=== PATIENT | female | born 1950 | race Caucasian/White ===

== ENCOUNTER 2023-08-17 12:13 | Emergency (ER) | payer OTHER ==
[~2023-08-17] VITALS: Ht 160 cm; Wt 63.0 kg
[2023-08-17] MEDS ORDERED: HYDROmorphone HCl/Pf 1MG SYR IM ONE (13:50)
[2023-08-17] MEDS ORDERED: propofoL 100 ML IV SCH ×2 (14:55→15:40)
[2023-08-17] MEDS ORDERED: propofoL 20 ML IV ONE (15:41)
[2023-08-17] MEDS ORDERED: TRAZ50 PO (16:22)
[2023-08-17] MEDS ORDERED: ESCI20 PO (16:22)
[2023-08-17] MEDS ORDERED: ATOR10 PO (16:22)
[2023-08-17] MEDS ORDERED: EUTHYROX150 MC1 PO (16:22)
[2023-08-17] MEDS ORDERED: BUPROPION XL150 M1 PO (16:22)
[2023-08-17] MEDS ORDERED: OMEP20ER PO (16:22)
[2023-08-17] MEDS ORDERED: METOPROLOL TART25 MG PO (16:23)
[2023-08-17] MEDS ORDERED: Ativan1 MG PO (16:23)
[2023-08-17] MEDS ORDERED: GABAPENTIN600 MG PO (16:23)
[2023-08-17] MEDS ORDERED: Propofol 10mg/ml 20 ml Vial (Procedural) IV SCH (16:35)
[2023-08-17] MEDS ORDERED: Percocet 5-3251 EACH PO ×3 (17:40→17:52)
[2023-08-17] MEDS ORDERED: Albuterol 2.5 MG/3 ML VIAL INH PRN (17:45)
[2023-08-17 17:55] LABS: BASOPHILS ABSOLUTE AUTO 0.07 K/mm3 (0.00-0.23); BASOPHILS PERCENT AUTO 1 % (0-2); EOSINOPHILS PERCENT AUTO 4 % (0-6); Hematocrit 34.3 % (33.0-51.0); Hemoglobin 11.7 g/dL (11.5-16.0); IMMATURE GRAN ABSOLUTE AUTO 0.05 K/mm3 (0.00-0.10); IMMATURE GRAN PERCENT AUTO 1 % (0-1); LYMPHOCYTES ABSOLUTE AUTO 0.58 K/mm3 (0.84-5.20); LYMPHOCYTES PERCENT AUTO 6 % (21-46); MONOCYTES ABSOLUTE AUTO 0.76 K/mm3 (0.16-1.47); MONOCYTES PERCENT AUTO 8 % (4-13); Mean Corpuscular HGB 33.6 pg (26.0-34.0); Mean Corpuscular HGB Conc 34.1 g/dL (31.5-36.5); Mean Corpuscular Volume 99 fL (80-100); Mean Platelet Volume 9.1 fL (9.1-12.4); NEUTROPHILS ABSOLUTE AUTO 7.37 K/mm3 (1.96-9.15); NEUTROPHILS PERCENT AUTO 80 % (41-73); Platelet Count 342 K/mm3 (150-400); RDW Coefficient Variation 15.8 % (11.7-14.2); RDW Standard Deviation 56.8 fL (35.1-46.3); Red Blood Cell Count 3.48 M/mm3 (3.80-5.20); White Blood Cell Count 9.23 K/mm3 (4.00-11.30)
[2023-08-17] MEDS ORDERED: Albuterol 2.5 MG/3 ML VIAL INH ONE (18:00)
[2023-08-17 18:19] LABS: Albumin, Blood 2.8 g/dL (3.4-5.0); Albumin/Globulin Ratio 0.8 (0.8-1.8); Bilirubin, Total 0.3 mg/dL (0.1-1.0); Bun/Creatinine Ratio 12.5 (12.0-20.0); Calcium, Blood 8.4 mg/dL (8.5-10.1); Creatinine, Blood 0.4 mg/dL (0.40-1.00); Globulin, Blood 3.6 g/dL (2.2-4.0); Potassium, Blood 3.8 mmol/L (3.5-5.5); Total Protein, Blood 6.4 g/dL (6.4-8.2)
[2023-08-18] MEDS ORDERED: Enoxaparin 40 MG/0.4 ML SYR SC SCH (09:00)
== END 2023-08-17 18:41 | disposition home or self-care (01) ==
LOC: ER 12:13
PROVIDERS: Physician Assistant
DX: T84.028A Dislocation of other internal joint prosthesis, initial encounter (principal); X58.XXXA Exposure to other specified factors, initial encounter; I10 Essential (primary) hypertension; E03.9 Hypothyroidism, unspecified; Z85.3 Personal history of malignant neoplasm of breast; E78.5 Hyperlipidemia, unspecified
CPT/HCPCS: 23650; 73020; 73030; 80053; 85025; 96372-59; 99152; 99153; 99284-25; J1170; J2704

== ENCOUNTER 2023-10-03 12:42 | Day surgery (SDC) | payer OTHER ==
[~2023-10-03] VITALS: Ht 149.9 cm; Wt 57.2 kg
[2023-10-03] VITALS (8 sets, daily range): BP systolic 103–115; BP diastolic 68–78
[~2023-10-03 12:42] MED LIST: ATOR10 PO; Ativan1 MG PO; BUPROPION XL150 M1 PO; CeFAZolin Sodium 2,000 MG in NS 100 ML IV SCH; ESCI20 PO; EUTHYROX150 MC1 PO; GABAPENTIN600 MG PO; Lactated Ringer's 1,000 ML IV SCH; METOPROLOL TART25 MG PO; OMEP20ER PO; Percocet 5-3251 EACH PO; TRAZ50 PO
[2023-10-03] MEDS ORDERED: FentaNYL Citrate 50 MCG/ML 2 ML Injection ONE (14:07)
--- NOTE | 2023-10-03 14:13 | NUR ---
TIME OUT FOR DR GOLDSMITH TO PLACE RIGHT SIDE SUPRACLAVICULAR SINGLE SHOT BLOCK.
[2023-10-03] MEDS ORDERED: Ropivacaine 0.2% HCl/Pf 2 MG/ML 20ML Vial ONE (14:14)
[2023-10-03] MEDS ORDERED: Dexamethasone Sod Phos 10 MG/ML 1ML VIAL ONE (14:15)
[2023-10-03] MEDS ORDERED: propofoL 20 ML IV ONE (14:53)
[2023-10-03] MEDS ORDERED: Bupivacaine 0.5% HCl 5 MG/ML 30MLVIAL ONE (15:21)
[2023-10-03] MEDS ORDERED: ePHEDrine Sulfate 50 MG/ML 1ML Injection ONE (15:26)
[2023-10-03] MEDS ORDERED: Phenylephrine HCl 100 MCG/ML-NS 10MLSYR (1MG/10ML) ONE (15:44)
[2023-10-03] MEDS ORDERED: Ondansetron HCl 2 MG / ML 2ML Vial ONE (15:44)
--- NOTE | 2023-10-03 16:15 | NUR ---
PT AWAKE WHEN ARRIVE TO PACU, DENIES PAIN. SPLINT TO R ARM WITH FUAD WRAP, CAP REFILL WNL. PT ABD TO DEEP BREATH AND COUGH.
--- NOTE | 2023-10-03 17:15 | NUR ---
REVIEWED DISCHARGE INSTRUCTIONS. PT ASSISTED TO DRESS, SLING PROVIDED FOR R ARM. PT WITH SCANT AMOUNT OF MOVEMENT TO R FINGERS. PT HAS PAIN MEDICATIONS AT HOME. ICE PACK PROVIDED. PT INSTRUCTED TO HAVE ASSISTANCE WITH TRANSFERS UNTIL R ARM BLOCK HAS WORN OFF AND PATIENT CAN MOVE R ARM. PT VERBALIZED UNDERSTANDING. PT HOME WITH . SPLINT WITH FUAD WRAP CLEAN DRY AND INTACT. CMS WNL.
== END 2023-10-03 22:44 | disposition home or self-care (01) ==
LOC: ORSCMMR 12:42 → ORD 14:00 → ORSCMMR 14:00
PROVIDERS: Orthopaedic Surgery
PROC: 0PSH04Z Reposition Right Radius with Internal Fixation Device, Open Approach (ICD-10-PCS; principal; 2023-10-03 13:30)
DX: S52.571A Other intraarticular fracture of lower end of right radius, initial encounter for closed fracture (principal); W18.30XA Fall on same level, unspecified, initial encounter; I10 Essential (primary) hypertension; E03.9 Hypothyroidism, unspecified; Z79.899 Other long term (current) drug therapy
CPT/HCPCS: C1713; J0690; J1100; J2371; J2405; J2704; J2795; J3010; J7120

== ENCOUNTER 2023-11-02 11:37 | Emergency (ER) | payer OTHER ==
[~2023-11-02] VITALS: Ht 160 cm; Wt 58.1 kg
[~2023-11-02 11:37] MED LIST changes: -CeFAZolin Sodium 2,000 MG in NS 100 ML IV SCH; -Lactated Ringer's 1,000 ML IV SCH
[2023-11-02] MEDS ORDERED: OxyCODONE 5 mg/Acetamin 325 mg TABLET PO ONE (13:25)
[2023-11-02] MEDS ORDERED: Percocet 5-3251 EACH PO (14:32)
== END 2023-11-02 14:45 | disposition home or self-care (01) ==
LOC: ER 11:37
DX: S42.422A Displaced comminuted supracondylar fracture without intercondylar fracture of left humerus, initial encounter for closed fracture (principal); R53.81 Other malaise; E78.5 Hyperlipidemia, unspecified; E03.9 Hypothyroidism, unspecified; I10 Essential (primary) hypertension; W18.30XA Fall on same level, unspecified, initial encounter; Z79.899 Other long term (current) drug therapy
CPT/HCPCS: 29105; 73070; 73200; 99284-25; A9270

== ENCOUNTER 2023-12-05 11:26 | Inpatient (IN) | payer MEDICARE, OTHER ==
[~2023-12-05] VITALS: Ht 160 cm; Wt 56.6 kg
[2023-12-05] MEDS ORDERED: Ondansetron HCl 2 MG / ML 2ML Vial IV ONE (11:45)
[2023-12-05] MEDS ORDERED: NS 1,000 ML IV SCH ×3 (11:45→15:55)
[2023-12-05] MEDS ORDERED: HYDROmorphone HCl/Pf 1MG SYR IV PRN (12:35)
[2023-12-05 12:43] LABS: BASOPHILS ABSOLUTE AUTO 0.07 K/mm3 (0.00-0.23); BASOPHILS PERCENT AUTO 0 % (0-2); EOSINOPHILS PERCENT AUTO 0 % (0-6); Hemoglobin 10.7 g/dL (11.5-16.0); IMMATURE GRAN PERCENT AUTO 2 % (0-1); LYMPHOCYTES ABSOLUTE AUTO 0.26 K/mm3 (0.84-5.20); LYMPHOCYTES PERCENT AUTO 1 % (21-46); MONOCYTES ABSOLUTE AUTO 1.16 K/mm3 (0.16-1.47); MONOCYTES PERCENT AUTO 4 % (4-13); Mean Corpuscular HGB 35.8 pg (26.0-34.0); Mean Corpuscular HGB Conc 33.4 g/dL (31.5-36.5); Mean Corpuscular Volume 107 fL (80-100); Mean Platelet Volume 9.4 fL (9.1-12.4); NEUTROPHILS ABSOLUTE AUTO 26.55 K/mm3 (1.96-9.15); NEUTROPHILS PERCENT AUTO 93 % (41-73); Platelet Count 331 K/mm3 (150-400); RDW Coefficient Variation 22.2 % (11.7-14.2); Red Blood Cell Count 2.99 M/mm3 (3.80-5.20); White Blood Cell Count 28.54 K/mm3 (4.00-11.30)
[2023-12-05 13:02] LABS: Albumin, Blood 1.8 g/dL (3.4-5.0); Albumin/Globulin Ratio 0.4 (0.8-1.8); Bilirubin, Total 0.7 mg/dL (0.1-1.0); Bun/Creatinine Ratio 24.1 (12.0-20.0); Creatinine, Blood 0.7 mg/dL (0.40-1.00); Globulin, Blood 4.7 g/dL (2.2-4.0); Potassium, Blood 5.7 mmol/L (3.5-5.5); Total Protein, Blood 6.5 g/dL (6.4-8.2)
[2023-12-05 13:12] LABS: Magnesium, Blood 1.8 mg/dL (1.6-2.4); Thyroid Stimulating Hormone 6.49 uIU/mL (0.360-4.800)
[2023-12-05] MEDS ORDERED: CefTRIAXone Sodium 1,000 MG in NS 100 ML IV ONE (13:55)
[2023-12-05] MEDS ORDERED: NS 1,000 ML IV ONE ×2 (14:45→20:00)
[2023-12-05 14:46] LABS: Source, Urine Straight Cath
[2023-12-05 14:51] LABS: Appearance, Urine Clear (Clear); Bilirubin, Urine Neg (Neg); Blood, Urine 1+ (Neg); Color, Urine Yellow (P-Yellow); Glucose Qualitative, Urine Neg (Neg); Ketones, Urine 2+ (Neg); Leukocyte Esterase, Urine 2+ (Neg); Nitrite, Urine Neg (Neg); Protein, Urine 2+ (Neg); Urobilinogen, Urine NORM (Normal)
[2023-12-05] MEDS ORDERED: FentaNYL Citrate 50 MCG/ML 2 ML Injection IV PRN ×2 (15:00→16:55)
[2023-12-05 15:01] LABS: Bacteria Many /hpf; Squamous Epithelial Cells Mod /hpf (Few)
[2023-12-05] MEDS ORDERED: Acetaminophen 325 MG TABLET PO PRN (15:05)
[2023-12-05] MEDS ORDERED: CLOT10 MT (15:20)
[2023-12-05] MEDS ORDERED: Azithromycin 500 MG in NS 250 ML IV SCH (16:00)
[2023-12-05] MEDS ORDERED: Ondansetron HCl 2 MG / ML 2ML Vial IV PRN (16:25)
[2023-12-05 16:27] VITALS: BP 101/73
--- NOTE | 2023-12-05 19:01 | NUR ---
SHIFT SUMMARY: ASSUMED CARE OF THIS PATIENT THIS AFTERNOON. PT ALERT AND ORIENTED TO PERSON, PLACE, DATE, AND MONTH. SHE IS A 1 PERSON ASSIST. PT DENIES CHEST PAIN/PRESSURE, NUMBNESS/TINGLING. ON TELE, SINUS RHYTHM IN THE 90'S-100'S. SYSTOLIC PRESSURES HAVE BEEN SOFT IN THE LOW 100'S. O2 IN THE 90'S ON 2L VIA NC. SHE HAS SCATTERED SCABS ON HER EXTREMETIES, AN ABRASION ON THE BACK OF HER SCALP, ULCERS ON HER BILATERAL FEET AND RIGHT CALF, AND REDNESS OF THE COCCYX, AND BUTTOCK MEPILEX IN PLACE. SEE PHOTO DOCUMENTATION IN CHART. PT HAS A CAST APPLIES TO THE LEFT ARM DUE TO A BREAK FROM A FALL A COUPLE WEEKS AGO. SHE IS HARD OF HEARING. SHE HAD HEARING AIDS ON ARRIVAL TO UNIT BUT GAVE THEM TO HER SIGNIFICANT OTHER TO TAKE HOME. WILL CONTINUE TO MONITOR AND REPORT TO CUSTOMS PATROL OFFICER NURSE.
[2023-12-05 19:24] VITALS: BP 102/68
[2023-12-05] MEDS ORDERED: TraZODone HCl 50 MG Tab PO SCH (21:00)
[2023-12-05] MEDS ORDERED: Lactobacil 2-S.Thermo-Bifido 1 1 Cap PO SCH (21:00)
--- NOTE | 2023-12-05 22:30 | NUR ---
ASSUMPTION OF CARE AFTER RECEIVING REPORT FROM GARCIA PEACOCK, THIS RN ASSUMED CARE AT APPROX 1915. PATIENT ALERT AND ORIENTED X3. UNCLEAR TO EVENTS LEADING TO ADMISSION, POOR HISTORIAN AT TIMES. PERRLA. MULTIPLE FALLS AT HOME. L HUMERUS FX IN SLING. UP TO BSC WITH ONE PERSON ASSIST. WEAKNESS/DECONDITIONING T/O. IS [place]. AFEBRILE. MEDICATED PER EMAR WITH IV FENTANYL AND PO TYLENOL FOR L ARM PAIN. REPORTING RELIEF. TELEMETRY SHOWING SINUS, SINUS TACH 90s-110s. BP STABLE, SBP 100s. MAP >65. DENIES CHEST PAIN. CRITICAL LACTIC OF 5.8. [employer]N CONTACTED MD PATIENT WAS TO RECEIVE AN ADDITIONAL IV BOLUS - ORDER RECEIVED. ADMINISTERED PER EMAR. ON 2L VIA NC, SATs >92%. TACHYPNEA AT REST, RR 22-26. DYSPNEA WITH MOBILITY. MULTIPLE WOUNDS T/O FROM MULTIPLE FALLS, PRESSURE INJURY TO R HEEL. MEPIPLEX DXs IN PLACE, C/D/I. SEE PICTURES IN CHART. Q2H REPOSITIONING. IVF INFUSING AT 100ML/HR. CALL LIGHT IN REACH.
[2023-12-05 23:03] VITALS: BP 91/63
[2023-12-06] VITALS (22 sets, daily range): BP systolic 76–91; BP diastolic 54–68
--- NOTE | 2023-12-06 03:54 | NUR ---
SOFT BP PATIENT's SBP 70s-80s. MAP >60. PATIENT ASYMPTOMATIC OF SOFT BP. IVF INFUSING PER EMAR AT 100ML/HR. X1 1L BOLUS ADMINISTERED AT ASSUMPTION OF CARE. MD CARTER CONTACTED. RECEIVED ONE TIME 500ML NS BOLUS AND PO MIDODRINE 10MG TID STARTING NOW. ORDERS IN PLACE. WILL CONTINUE TO MONITOR AND ADMINISTER PER EMAR.
[2023-12-06] MEDS ORDERED: Midodrine 5 MG Tab PO SCH (03:55)
[2023-12-06] MEDS ORDERED: NS 500 ML IV ONE ×2 (03:55→23:15)
[2023-12-06 04:35] LABS: BASOPHILS ABSOLUTE AUTO 0.06 K/mm3 (0.00-0.23); BASOPHILS PERCENT AUTO 0 % (0-2); EOSINOPHILS ABSOLUTE AUTO 0.02 K/mm3 (0.00-0.68); EOSINOPHILS PERCENT AUTO 0 % (0-6); Hematocrit 28.2 % (33.0-51.0); Hemoglobin 9.4 g/dL (11.5-16.0); IMMATURE GRAN ABSOLUTE AUTO 0.47 K/mm3 (0.00-0.10); IMMATURE GRAN PERCENT AUTO 3 % (0-1); LYMPHOCYTES ABSOLUTE AUTO 0.45 K/mm3 (0.84-5.20); LYMPHOCYTES PERCENT AUTO 2 % (21-46); MONOCYTES ABSOLUTE AUTO 0.99 K/mm3 (0.16-1.47); MONOCYTES PERCENT AUTO 5 % (4-13); Mean Corpuscular HGB 35.5 pg (26.0-34.0); Mean Corpuscular HGB Conc 33.3 g/dL (31.5-36.5); Mean Corpuscular Volume 106 fL (80-100); Mean Platelet Volume 9.3 fL (9.1-12.4); NEUTROPHILS ABSOLUTE AUTO 16.62 K/mm3 (1.96-9.15); NEUTROPHILS PERCENT AUTO 89 % (41-73); Platelet Count 224 K/mm3 (150-400); RDW Coefficient Variation 22.5 % (11.7-14.2); RDW Standard Deviation 86.1 fL (35.1-46.3); Red Blood Cell Count 2.65 M/mm3 (3.80-5.20); White Blood Cell Count 18.61 K/mm3 (4.00-11.30)
[2023-12-06 05:10] LABS: Bun/Creatinine Ratio 18.4 (12.0-20.0); Calcium, Blood 7.1 mg/dL (8.5-10.1); Creatinine, Blood 0.44 mg/dL (0.40-1.00)
--- NOTE | 2023-12-06 05:31 | NUR ---
SHIFT SUMMARY SEE PREVIOUS NOTES. PATIENTs SBP 80s-90s. MAP >65. REMAINS ASYMPTOMATIC OF SOFT BP. 500ML IV BOLUS COMPLETE. PO MIDODRINE ADMINISTERED PER EMAR. IVF INFUSING PER EMAR AT 100ML/HR. TELEMETRY SHOWING SINUS 80s-90s. REMAINS ON 2L VIA NC, SATs >92%. TACHYPNEA AT REST IMPROVED. X1 EPISODE OF URINARY INCONTINENCE. ATTENDS IN PLACE. Q2H REPOSITIONING. L ARM PAIN TOLERABLE SINCE PO TYLENOL AND IV FENTANYL ADMINITERED AT ASSUMPTION OF CARE. CALL LIGHT IN REACH. WILL CONTINUE TO MONITOR AND REPORT TO ONCOMING RN.
[2023-12-06] MEDS ORDERED: Omeprazole 20 MG CapCR PO SCH (06:00)
[2023-12-06] MEDS ORDERED: Levothyroxine Sodium 0.15 MG Tab PO SCH (06:00)
--- NOTE | 2023-12-06 07:11 | NUR ---
SOFT BP PATIENT's BP TRENDING DOWN, SBP 70s-80s. MAP >60. PATIENT REMAINS ASYMPTOMATIC. MD BARBOSA CONTACTED. RECEIVED ORDER FOR REPEAT LACTIC ACID AND FOR A ONE TIME 250ML NS BOLUS.
[2023-12-06] MEDS ORDERED: NS 250 ML IV ONE (07:15)
[2023-12-06] MEDS ORDERED: Atorvastatin 10 MG Tab PO SCH (09:00)
[2023-12-06] MEDS ORDERED: Nicotine 14 MG PATCH TOP SCH (09:00)
[2023-12-06] MEDS ORDERED: Enoxaparin 30 MG/0.3 ML SYR SC SCH (09:00)
[2023-12-06] MEDS ORDERED: Gabapentin 300 MG Cap PO SCH (09:00)
[2023-12-06] MEDS ORDERED: CefTRIAXone Sodium 1,000 MG in NS 100 ML IV SCH (15:00)
--- NOTE | 2023-12-06 17:55 | NUR ---
SHIFT SUMMARY PT ALERT AND ORIENTED TO SELF, PLACE, YEAR, AND MONTH. ON TELE, SINUS RHYTHM IN THE 80-90'S. SHE DENIES ANY CHEST PAIN/PRESSURE, NUMB/TINGLING. SYSTOLIC PRESSURES HAVE BEEN SOFT IN THE 80'S-90'S. 250 ML FLUID BOLUS GIVEN THIS AM AND TREATING WITH MIDODRINE TID PER EMAR. OXYGEN SATS >92% ON RA. REPEAT LACTIC DRAWN THIS AM WITH A DECREASE TO 2.6. ORTHOPEDICS CONSULTED FOR PATIENT, DR. GIVENS IS FOLLOWING. LEFT ARM REMAINS IN CAST, IMMOBILIZER/SLING IN PLACE. THE DENTAL HYGENIST MET WITH PATIENT TODAY. PT HAS SORES IN HER MOUTH AND PAIN WITH TONGUE MOVEMENT. PROVIDER NOTIFIED OF DENTAL HYGENIST RECCOMENDATIONS AND LABS COMPLETED. ORAL SUPPLEMENT ORDERED. SPEECH THERAPY MET WITH PATIENT AND SHE IS NOW ON A FULL LIQUID DIET. SHE CAN TAKE MEDICATIONS WITH WATER WHOLE. ORDER PLACED FOR A BARIUM SWALLOW STUDY. SHE HAD AN INCONTENT EPISODE OF STOOL TODAY. PT CLEANED AND NEW PUREWICK PLACED. WILL CONTINUE TO MONITOR AND REPORT TO CIRCULAR DISTRIBUTOR NURSE.
[2023-12-06] MEDS ORDERED: Midodrine 5 MG Tab PO ONE (23:15)
[2023-12-07] VITALS (12 sets, daily range): BP systolic 72–100; BP diastolic 57–80
[2023-12-07 04:32] LABS: BASOPHILS ABSOLUTE AUTO 0.03 K/mm3 (0.00-0.23); BASOPHILS PERCENT AUTO 0 % (0-2); EOSINOPHILS ABSOLUTE AUTO 0.07 K/mm3 (0.00-0.68); EOSINOPHILS PERCENT AUTO 1 % (0-6); Hemoglobin 7.7 g/dL (11.5-16.0); IMMATURE GRAN ABSOLUTE AUTO 0.11 K/mm3 (0.00-0.10); IMMATURE GRAN PERCENT AUTO 1 % (0-1); LYMPHOCYTES ABSOLUTE AUTO 0.44 K/mm3 (0.84-5.20); LYMPHOCYTES PERCENT AUTO 4 % (21-46); MONOCYTES ABSOLUTE AUTO 0.64 K/mm3 (0.16-1.47); MONOCYTES PERCENT AUTO 5 % (4-13); Mean Corpuscular HGB 36.7 pg (26.0-34.0); Mean Corpuscular Volume 105 fL (80-100); Mean Platelet Volume 9.9 fL (9.1-12.4); NEUTROPHILS ABSOLUTE AUTO 10.54 K/mm3 (1.96-9.15); NEUTROPHILS PERCENT AUTO 89 % (41-73); Platelet Count 205 K/mm3 (150-400); RDW Standard Deviation 86.4 fL (35.1-46.3); White Blood Cell Count 11.83 K/mm3 (4.00-11.30)
[2023-12-07 05:06] LABS: Bun/Creatinine Ratio 10.1 (12.0-20.0); Calcium, Blood 7.1 mg/dL (8.5-10.1); Creatinine, Blood 0.4 mg/dL (0.40-1.00); Potassium, Blood 3.5 mmol/L (3.5-5.5)
--- NOTE | 2023-12-07 06:11 | NUR ---
SHIFT SUMMARY PT A&O X3, CONFUSION AND FORGETFULNESS NOTED T/O SHIFT. VS; SBP 78 - HIGH 80'S, HR SR IN 70 - 80'S, AFEBRILE, SPO2 98 - 100% ON RA. THIS RN NOTIFIED RESIDENT OF SBP OF 78 X2 WITH MAP OF 63; NEW ORDERS FOR MIDODRINE 10 MG X1 AND 500 ML BOLUS OF NS. ORDERS COMPLETE. SBP THEN INCREASED TO 80'S WITH ALL MAPS GREATER THAN 65. PT DENIES SX. PT ONLY C/O OF PAIN IN "MOUTH" STATES IT IS GETTING WORSE. MEDICATION PER EMAR. PT PAINFUL "ALL OVER" WELL D/T MANY RECENT FALLS AT HOME AND L ARM FX. PT WITH MANY SCABS, SKIN TEARS, BRUISING AND HEMATOMAS FROM FALLS AT HOME. PT DID EAT SOME CHICKEN NOODLE SOUP AND CRACKERS THIS SHIFT, TOLERATED WELL. NO N/V. PT NEEDING ASSISTANCE TO EAT D/T MOBILITY ISSUES. PUREWICK IN PLACE AT START OF SHIFT, WITH 250 MLS UOP BUT D/T INCONTINENT, LOOSE/LIQUID STOOLS IT WAS REMOVED. PT WITH 2 INCONTINENT VOIDS THAT SATURATED ATTENDS. PT WITH BM X3, ALL LOOSE AND LIQUID. PT DID REST WELL FOR SHIFT. PT WITH COUGH, HOWEVER COUGH IS VERY WEAK AND LS COARSE/DIMINISHED T/O. Q2 TURNS OR PRN. CALL LIGHT IN REACH, PT ABLE TO MAKE NEEDS KNOWN. WILL UPDATE ONCOMING RN.
[2023-12-07 12:08] LABS: Hematocrit 27.7 % (33.0-51.0); Hemoglobin 9.2 g/dL (11.5-16.0)
[2023-12-07 12:27] LABS: Stool Occult Blood Guaiac 1 Neg (Neg)
[2023-12-07] MEDS ORDERED: Lidocaine 2% Viscous Soln 20 ML,Nystatin 100,000 Unit/ml Susp 20 ML,Mag Hydrox/Al Hydro... MT PRN (13:30)
[2023-12-08] VITALS (8 sets, daily range): BP systolic 85–108; BP diastolic 60–72
--- NOTE | 2023-12-08 02:13 | NUR ---
PATIENT HAS BEEN HAVE SEVERAL RUNS OF SVT INTO THE 160-170S LASTING 3-6 SECONDS. CHECKED ON PAITENT AND PATIENT IS ASYMPTOMATIC. CALLED RESIDENT AT THIS TIME TO INFORM THEM OF THE RUNS OF SVT. AT THIS TIME NO NEW ORDERS.
[2023-12-08 04:15] LABS: BASOPHILS ABSOLUTE AUTO 0.03 K/mm3 (0.00-0.23); BASOPHILS PERCENT AUTO 0 % (0-2); EOSINOPHILS ABSOLUTE AUTO 0.03 K/mm3 (0.00-0.68); EOSINOPHILS PERCENT AUTO 0 % (0-6); Hematocrit 25.4 % (33.0-51.0); Hemoglobin 8.7 g/dL (11.5-16.0); IMMATURE GRAN ABSOLUTE AUTO 0.08 K/mm3 (0.00-0.10); IMMATURE GRAN PERCENT AUTO 1 % (0-1); LYMPHOCYTES ABSOLUTE AUTO 0.46 K/mm3 (0.84-5.20); LYMPHOCYTES PERCENT AUTO 4 % (21-46); MONOCYTES ABSOLUTE AUTO 0.65 K/mm3 (0.16-1.47); MONOCYTES PERCENT AUTO 5 % (4-13); Mean Corpuscular HGB 36.4 pg (26.0-34.0); Mean Corpuscular HGB Conc 34.3 g/dL (31.5-36.5); Mean Corpuscular Volume 106 fL (80-100); Mean Platelet Volume 10.1 fL (9.1-12.4); NEUTROPHILS ABSOLUTE AUTO 10.87 K/mm3 (1.96-9.15); NEUTROPHILS PERCENT AUTO 90 % (41-73); Platelet Count 179 K/mm3 (150-400); RDW Coefficient Variation 23.8 % (11.7-14.2); RDW Standard Deviation 91.1 fL (35.1-46.3); Red Blood Cell Count 2.39 M/mm3 (3.80-5.20); White Blood Cell Count 12.12 K/mm3 (4.00-11.30)
[2023-12-08 04:30] LABS: Bun/Creatinine Ratio 17.1 (12.0-20.0); Calcium, Blood 7.2 mg/dL (8.5-10.1); Creatinine, Blood 0.29 mg/dL (0.40-1.00); Magnesium, Blood 1.6 mg/dL (1.6-2.4); Potassium, Blood 3.2 mmol/L (3.5-5.5)
[2023-12-08] MEDS ORDERED: Diltiazem HCl 5 MG / ML 5ML Vial IV ONE (04:50)
[2023-12-08] MEDS ORDERED: Potassium Chloride 10 Meq Tablet SA PO ONE (04:50)
[2023-12-08] MEDS ORDERED: CALCIUM GLUC IN NACL, ISO-OSM 50 ML IV ONE (13:25)
[2023-12-08] MEDS ORDERED: Metoprolol Succinate 25 MG TABCR PO ONE (13:35)
--- NOTE | 2023-12-08 16:28 | NUR ---
SHIFT SUMMARY PT A&Ox4, CALLS AND COMMUNICATES NEEDS APPROPRIATELY, [place]. FORGETFUL AT TIMES, EASILY REORIENTED. BP SOFT WITH MAP> 65, ASYMPTOMATIC, SINUS TACH 100's. OCCASIONAL SHORT RUNS OF SVT DURING FIRST HALF OF SHIFT, FREQUENT PAC/PVCs DUSING SECOND HALF OF SHIFT, DENIES CP/PRESSURE. SpO2> 92% RA, DENIES SOB. 1 ASSIST TO CHAIR. INCONTIENT OF URINE AND BOWEL, BMs VERY SOFT/PASTY AND LIGHT YELLOW IN COLOR. L ARM REMAINED IN SLING. MANAGED PTs PAIN PER EMAR. Q2 TURNS AND ORAL CARE PROVIDED. NO OTHE EVENTS, WILL REPORT TO ONCOMING RN.
[2023-12-09] VITALS (20 sets, daily range): BP systolic 82–135; BP diastolic 67–87
[2023-12-09 03:43] LABS: BASOPHILS ABSOLUTE AUTO 0.03 K/mm3 (0.00-0.23); BASOPHILS PERCENT AUTO 0 % (0-2); EOSINOPHILS ABSOLUTE AUTO 0.02 K/mm3 (0.00-0.68); EOSINOPHILS PERCENT AUTO 0 % (0-6); Hematocrit 25.3 % (33.0-51.0); Hemoglobin 8.9 g/dL (11.5-16.0); IMMATURE GRAN ABSOLUTE AUTO 0.08 K/mm3 (0.00-0.10); IMMATURE GRAN PERCENT AUTO 1 % (0-1); LYMPHOCYTES ABSOLUTE AUTO 0.51 K/mm3 (0.84-5.20); LYMPHOCYTES PERCENT AUTO 4 % (21-46); MONOCYTES ABSOLUTE AUTO 0.79 K/mm3 (0.16-1.47); MONOCYTES PERCENT AUTO 6 % (4-13); Mean Corpuscular HGB 36.6 pg (26.0-34.0); Mean Corpuscular HGB Conc 35.2 g/dL (31.5-36.5); Mean Corpuscular Volume 104 fL (80-100); Mean Platelet Volume 10.1 fL (9.1-12.4); NEUTROPHILS ABSOLUTE AUTO 11.34 K/mm3 (1.96-9.15); NEUTROPHILS PERCENT AUTO 89 % (41-73); Platelet Count 179 K/mm3 (150-400); RDW Coefficient Variation 23.2 % (11.7-14.2); RDW Standard Deviation 86.5 fL (35.1-46.3); Red Blood Cell Count 2.43 M/mm3 (3.80-5.20); White Blood Cell Count 12.77 K/mm3 (4.00-11.30)
[2023-12-09 04:03] LABS: Bun/Creatinine Ratio 14.6 (12.0-20.0); Calcium, Blood 7.7 mg/dL (8.5-10.1); Creatinine, Blood 0.41 mg/dL (0.40-1.00); Magnesium, Blood 1.5 mg/dL (1.6-2.4); Potassium, Blood 3.9 mmol/L (3.5-5.5)
--- NOTE | 2023-12-09 05:06 | NUR ---
SHIFT SUMMARY PT A&OX3-4, ABLE TO MAKE NEEDS KNOWN. SHE IS [place]. VSS, AFEBRILE, BP STABLE, SPO2 >90% RA. PAIN OF L ARM MEDICATED PER EMAR, ARM REMAINS IN SLING/ IMMOBILIZER. PT DENIES SOB, CP, OR PRESSURE. PT WITH INFREQUENT INTERMITTENT WEAK COUGH. NO ACUTE EVENTS THIS SHIFT. PT IS RESTING QUIETLY IN BED, CALL LIGHT WITHIN REACH, BREATHING EVEN AND UNLABORED.
[2023-12-09] MEDS ORDERED: Mag Sulfate 1 GM/D5% 100ML 100 ML IV STA (07:59)
[2023-12-09] MEDS ORDERED: Metoprolol Succinate 25 MG TABCR PO SCH (09:00)
[2023-12-09] MEDS ORDERED: MetroNIDAZOLE 500MG/NS 100 ml 100 ML IV SCH (12:00)
[2023-12-09] MEDS ORDERED: Furosemide 10 MG / ML 2ML Vial IV SCH (12:00)
--- NOTE | 2023-12-09 16:12 | NUR ---
SHIFT SUMMARY PT A&Ox4, CALLS AND COMMUNICATES NEEDS APPROPRIATELY, [place]. FORGETFUL AT TIMES, EASILY REORIENTED. BP SOFT WITH MAP> 65, ASYMPTOMATIC, SR-ST 80-100's. OCCASIONAL SHORT RUNS OF SVT, DENIES CP/PRESSURE. SpO2> 92% 2L VIA NC, REPORTS INTERMITTENT SOB. 1 ASSIST TO CHAIR. CONTIENT OF BOWEL, BMs VERY SOFT/PASTY AND LIGHT YELLOW IN COLOR. INCONTIENT OF URINE, PUREWICK IN PLACE. L ARM REMAINED IN SLING. MANAGED PTs PAIN PER EMAR. Q2 TURNS AND ORAL CARE PROVIDED. NO OTHE EVENTS, WILL REPORT TO ONCOMING RN.
[2023-12-10] VITALS (10 sets, daily range): BP systolic 93–115; BP diastolic 70–89
[2023-12-10 03:46] LABS: BASOPHILS ABSOLUTE AUTO 0.02 K/mm3 (0.00-0.23); BASOPHILS PERCENT AUTO 0 % (0-2); EOSINOPHILS ABSOLUTE AUTO 0.05 K/mm3 (0.00-0.68); EOSINOPHILS PERCENT AUTO 1 % (0-6); Hematocrit 24.9 % (33.0-51.0); Hemoglobin 8.7 g/dL (11.5-16.0); IMMATURE GRAN ABSOLUTE AUTO 0.08 K/mm3 (0.00-0.10); IMMATURE GRAN PERCENT AUTO 1 % (0-1); LYMPHOCYTES ABSOLUTE AUTO 0.56 K/mm3 (0.84-5.20); LYMPHOCYTES PERCENT AUTO 7 % (21-46); MONOCYTES ABSOLUTE AUTO 0.66 K/mm3 (0.16-1.47); MONOCYTES PERCENT AUTO 8 % (4-13); Mean Corpuscular HGB 36.6 pg (26.0-34.0); Mean Corpuscular HGB Conc 34.9 g/dL (31.5-36.5); Mean Corpuscular Volume 105 fL (80-100); Mean Platelet Volume 10.2 fL (9.1-12.4); NEUTROPHILS ABSOLUTE AUTO 6.65 K/mm3 (1.96-9.15); NEUTROPHILS PERCENT AUTO 83 % (41-73); Platelet Count 149 K/mm3 (150-400); RDW Coefficient Variation 22.7 % (11.7-14.2); RDW Standard Deviation 85.2 fL (35.1-46.3); Red Blood Cell Count 2.38 M/mm3 (3.80-5.20); White Blood Cell Count 8.02 K/mm3 (4.00-11.30)
[2023-12-10 04:06] LABS: Calcium, Blood 7.7 mg/dL (8.5-10.1); Creatinine, Blood 0.4 mg/dL (0.40-1.00); Magnesium, Blood 1.6 mg/dL (1.6-2.4); Potassium, Blood 3.5 mmol/L (3.5-5.5)
--- NOTE | 2023-12-10 04:43 | NUR ---
UPDATE NOTIFIED DR. CARTER OF FREQUENT RUNS OF SVT. LAST EPISODE OF 190, SUSTAINED FOR SEVERAL SECONDS BEFORE COMING DOWN TO HR OF 90'S. PT REMAINS ASYMPTOMATIC. ORDERS TO REPLACE POTASSIUM AND MAG. SEE EMAR.
[2023-12-10] MEDS ORDERED: Potassium Chloride 20 MEQ TabCR PO ONE (04:45)
[2023-12-10] MEDS ORDERED: Mag Sulfate 1 GM/D5% 100ML 100 ML IV ONE (04:45)
--- NOTE | 2023-12-10 05:33 | NUR ---
SHIFT SUMMARY PT A&OX3-4, ABLE TO MAKE NEEDS KNOWN. SHE IS [place], CAN BE CONFUSED AT TIMES BUT IS EASILY REORIENTED. VSS, AFEBRILE, BP STABLE, SPO2 >90% ON 2-4L NC. SHE CONTINUES TO HAVE VERY BRIEF EPISODES OF SVT AND REMAINS ASYMPTOMATIC. LUNGS WITH COARSE CRACKLES. SHE DENIES CP/ PRESSURE, OR SOB AT REST. PAIN OF L ARM MEDICATED PER EMAR, ARM REMAINS IN SLING/ IMMOBILIZER. PT CONTINUES TO HAVE WEAK COUGH. NO ACUTE EVENTS THIS SHIFT. PT IS RESTING QUIETLY IN BED, CALL LIGHT WITHIN REACH, BREATHING EVEN AND UNLABORED.
[2023-12-10] MEDS ORDERED: FURO40 PO (09:01)
[2023-12-10] MEDS ORDERED: SPIR25 PO (09:01)
[2023-12-10] MEDS ORDERED: METO25 PO (09:02)
[2023-12-10] MEDS ORDERED: GABA300 PO (09:02)
[2023-12-10] MEDS ORDERED: POTA10T PO (09:04)
--- NOTE | 2023-12-10 17:44 | NUR ---
SHIFT SUMMARY PT A&Ox4, CALLS AND COMMUNICATES NEEDS APPROPRIATELY, [place]. FORGETFUL AT TIMES, EASILY REORIENTED. BP STABLE, SR-ST 80-100's. OCCASIONAL SHORT RUNS OF SVT, DENIES CP/PRESSURE. SpO2> 92% 2-5L VIA NC, REPORTS INTERMITTENT SOB. 1 ASSIST TO CHAIR. INCONTIENT OF BOWEL, BMs VERY SOFT/PASTY AND LIGHT YELLOW IN COLOR. INCONTIENT OF URINE, PUREWICK IN PLACE. L ARM REMAINED IN SLING. MANAGED PTs PAIN PER EMAR. Q2 TURNS AND ORAL CARE PROVIDED. NO OTHE EVENTS, WILL REPORT TO ONCOMING RN.
[2023-12-10] MEDS ORDERED: Furosemide 10 MG / ML 2ML Vial IV SCH (18:00)
[2023-12-10 19:51] LABS: Campylobacter Sp Not Detected (NOT DETECT); Enteroaggregative E. coli-EAEC Detected (NOT DETECT); Plesiomonas Shigelloides Not Detected (NOT DETECT); Salmonella Sp Not Detected (NOT DETECT)
[2023-12-10 19:52] LABS: Adenovirus F 40/41 Not Detected (NOT DETECT); Astrovirus Not Detected (NOT DETECT); Cryptosporidium Not Detected (NOT DETECT); Cyclospora Cayetanensis Not Detected (NOT DETECT); E. Coli O157 Not Detected (NOT DETECT); Entamoeba Histolytica Not Detected (NOT DETECT); Enteropathogenic E. coli-EPEC Not Detected (NOT DETECT); Enterotoxigenic E. coli-ETEC Not Detected (NOT DETECT); Giardia Lamblia Not Detected (NOT DETECT); Norovirus GI/GII Not Detected (NOT DETECT); Rotavirus A Not Detected (NOT DETECT); Sapovirus Not Detected (NOT DETECT); Shiga Toxin-prod E. coli-STEC Not Detected (NOT DETECT); Shigella/Enteroin E. coli-EIEC Not Detected (NOT DETECT); Vibrio Cholerae Not Detected (NOT DETECT); Vibrio Sp Not Detected (NOT DETECT); Yersinia Enterocolitica Not Detected (NOT DETECT)
--- NOTE | 2023-12-10 22:18 | NUR ---
ASSUMPTION OF CARE: THIS RN ASSUMED CARE OF PT AT APPROX 1900. A/OX4, VERY [place]. [place], ABLE TO COMMUNICATE NEEDS W/ STAFF. HR 80-90'S, SINUS ON TELE. SBP 100'S, DENIES CHEST PAIN/PRESSURE. SPO2 >90% ON 5L VIA NC. AFEBRILE. TOLERATED PO MEDICATIONS WELL WHOLE IN APPLESAUCE PER SPEECH THERAPY. PUREWICK IN PLACE DRAINING YELLOW URINE TO SUCTION. NO OTHER NEEDS AT THIS TIME, PT RESTING IN BED. CALL LIGHT IN REACH.
[2023-12-11] VITALS (11 sets, daily range): BP systolic 79–109; BP diastolic 63–88
[2023-12-11 03:53] LABS: BASOPHILS ABSOLUTE AUTO 0.02 K/mm3 (0.00-0.23); BASOPHILS PERCENT AUTO 0 % (0-2); EOSINOPHILS ABSOLUTE AUTO 0.07 K/mm3 (0.00-0.68); EOSINOPHILS PERCENT AUTO 1 % (0-6); Hematocrit 24.3 % (33.0-51.0); Hemoglobin 8.2 g/dL (11.5-16.0); IMMATURE GRAN ABSOLUTE AUTO 0.07 K/mm3 (0.00-0.10); IMMATURE GRAN PERCENT AUTO 1 % (0-1); LYMPHOCYTES ABSOLUTE AUTO 0.52 K/mm3 (0.84-5.20); LYMPHOCYTES PERCENT AUTO 8 % (21-46); MONOCYTES ABSOLUTE AUTO 0.51 K/mm3 (0.16-1.47); MONOCYTES PERCENT AUTO 8 % (4-13); Mean Corpuscular HGB 35.7 pg (26.0-34.0); Mean Corpuscular HGB Conc 33.7 g/dL (31.5-36.5); Mean Corpuscular Volume 106 fL (80-100); Mean Platelet Volume 10.6 fL (9.1-12.4); NEUTROPHILS PERCENT AUTO 82 % (41-73); Platelet Count 159 K/mm3 (150-400); RDW Coefficient Variation 22.5 % (11.7-14.2); RDW Standard Deviation 84.9 fL (35.1-46.3); White Blood Cell Count 6.49 K/mm3 (4.00-11.30)
[2023-12-11 04:15] LABS: Magnesium, Blood 1.8 mg/dL (1.6-2.4)
[2023-12-11 04:16] LABS: Bun/Creatinine Ratio 14.8 (12.0-20.0); Calcium, Blood 7.4 mg/dL (8.5-10.1); Creatinine, Blood 0.41 mg/dL (0.40-1.00); Potassium, Blood 3.7 mmol/L (3.5-5.5)
--- NOTE | 2023-12-11 05:03 | NUR ---
END OF SHIFT NOTE: NO ACUTE EVENTS OVERNIGHT. PT REMAINS A/OX4, COOPERATIVE W/ CARE. HR 80-100'S, SINUS ON TELE; 2 NONSUSTAINED RUNS OF SVT PER TELEMETRY. SBP 70-100'S, MAP >65. DENIES CHEST PAIN/PRESSURE. SPO2 >90% ON 5L VIA NC; OCCASIONAL HAND STEMMER COUGH, WEAK COUGH EFFORT NOTED. PUREWICK IN PLACE D/T INCONTINENCE, DRAINING YELLOW URINE TO SUCTION. 2 LARGE LOOSE/UNFORMED/LIGHT BROWN INCONTINENT BM'S THIS SHIFT. ATTENDS CHANGED TO KEEP C/D/I, MEPILEX TO COCCYX REPLACED & BARRIER CREAM APPLIED. RUE WEEPING AT TIMES. C/O PAIN TO BILAT UPPER EXTREMITIES, MEDICATED PER EMAR. REPOSITIONED Q2HRS & PRN FOR COMFORT. NO OTHER NEEDS AT THIS TIME, PT RESTING IN BED W/ CALL LIGHT IN REACH. WILL REPORT TO ONCOMING RN.
[2023-12-11] MEDS ORDERED: Spironolactone 25 MG Tab PO SCH (09:00)
[2023-12-11] MEDS ORDERED: Loperamide HCl 2 MG Cap PO PRN (11:10)
[2023-12-11] MEDS ORDERED: TraMADol HCl 50 MG Tab PO PRN (11:10)
--- NOTE | 2023-12-11 17:13 | NUR ---
SHIFT SUMMARY PT A&OX4. SP02>90% ON 5L NC. WEAK COUGH, UNABLE TO CLEAR. TELEMETRY NSR/SINUS TACH, HR 110'S-120'S. HR INCREASES W/ AMBULATION. BP SOFT. DIURESING. PURWIK TO SUCTION THIS EVENING. THIS AM, UNMEASURED VOIDS D/T DIARRHEA. IMMODIUM GIVEN PER EMAR WITH SUCCESS. PT'S DAUGHTER MENTIONED THIS EVENING PT'S PRIMARY STATES PT IS LACTOSE INTOLERANT. PT'S FOOD ORDER UPDATED. INCONTINENT STOOL X2 THIS AM, YELLOW, PASTY. BED BATH GIVEN. PT C/O 5/10 L ARM PAIN. MEDICATED INITIALLY W/ TYLENOL WITH NO RELIEF. CALL PLACED TO MD BARBOSA. MD BARBOSA W/ ORDERS FOR TRAMADOL. TRAMADOL GIVEN PER EMAR W/ RELIEF. PT UP TO CHAIR X3 TODAY FOR MEALS. PT WORKED W/ PT. SPEECH IN ROOM FOR EVAL, CHANGED TO PUREE DIET. PT'S DAUGHTER STATES SHE WILL BE AT WORK TOMORROW DURING ROUNDING BUT WOULD APPRECIATE A PHONE CALL FROM WITH AN UPDATE. PHONE NUMBER ON PT'S WHITE BOARD. PT SITTING IN CHAIR EATING DINNER. DAUGHTER IN ROOM. CALL LIGHT IN REACH.
--- NOTE | 2023-12-11 22:08 | NUR ---
ASSUMPTION OF CARE: THIS RN ASSUMED CARE OF PT AT APPROX 1900, BEDSIDE REPORT COMPLETED. PT A/OX4, [place] BUT ABLE TO COMMUNICATE NEEDS W/ STAFF. VSS. HR 80-100'S, SINUS ON TELE. SBP 100'S, DENIES CHEST PAIN/PRESSURE/PALPITATIONS. SPO2 >95% ON 5L O2 VIA NC. COUGH EFFORT REMAINS WEAK. LS COARSE, L>R. PUREWICK IN PLACE DRAINING YELLOW URINE TO SUCTION. NO BM'S OF THIS TIME, ATTENDS IN PLACE. BT+ IN ALL QUADRANTS. BLE 2+ PITTING EDEMA, ELEVATED ON PILLOWS. EXTREMITIES CONTINUE TO WEEP. C/O PAIN TO UPPER EXTREMITIES, MEDICATED PER EMAR W/ RELIEF. Q2HR REPOSITIONING IN PLACE. PT RESTING IN BED AT THIS TIME W/ CALL LIGHT IN REACH.
[2023-12-12] VITALS (8 sets, daily range): BP systolic 84–101; BP diastolic 57–79
--- NOTE | 2023-12-12 05:25 | NUR ---
END OF SHIFT NOTE: NO ACUTE OVERNIGHT EVENTS. PT REMAINS A/OX4, ABLE TO COMMUNICATE NEEDS. VSS. HR 80-110'S, SINUS-SINUS TACH ON TELE. 1 RUN OF NONSUSTAINED SVT OVERNIGHT. SBP 90-100'S, MAP >65. SPO2 >90% ON 5L O2 VIA NC. ATTEMPTED TO TITRATE O2 DOWN BUT SPO2 DROPPED TO LOW-MID 80'S. PT ABLE TO RECOVER ON 5L. 1 MEDIUM LOOSE STOOL, ATTENDS CHANGED TO KEEP C/D/I. PUREWICK IN PLACE, APPROX 20-30ML OUTPUT OVERNIGHT. BLADDER SCAN SHOWS 330ML. NOTIFIED RESIDENT MD, NO NEW ORDERS AT THIS TIME. MINIMAL PO INTAKE. Q2HR REPOSITIONING. C/O UPPER EXTREMITY PAIN, MEDICATED PER EMAR PRN. EXTREMITIES CONTINUE TO WEEP W/ 2+ PITTING EDEMA. NO OTHER NEEDS AT THIS TIME, CALL LIGHT IN REACH. WILL REPORT TO ONCOMING RN.
[2023-12-12 06:09] LABS: Hematocrit 26.9 % (33.0-51.0); Hemoglobin 8.8 g/dL (11.5-16.0); Mean Corpuscular HGB 35.3 pg (26.0-34.0); Mean Corpuscular HGB Conc 32.7 g/dL (31.5-36.5); Mean Corpuscular Volume 108 fL (80-100); Mean Platelet Volume 10.6 fL (9.1-12.4); Platelet Count 168 K/mm3 (150-400); RDW Coefficient Variation 22.1 % (11.7-14.2); RDW Standard Deviation 88.7 fL (35.1-46.3); Red Blood Cell Count 2.49 M/mm3 (3.80-5.20); White Blood Cell Count 4.21 K/mm3 (4.00-11.30)
[2023-12-12 06:30] LABS: Bun/Creatinine Ratio 16.7 (12.0-20.0); Calcium, Blood 7.9 mg/dL (8.5-10.1); Creatinine, Blood 0.48 mg/dL (0.40-1.00); Potassium, Blood 3.5 mmol/L (3.5-5.5)
[2023-12-12 06:44] LABS: BASOPHILS PERCENT MAN 0 % (0-2); EOSINOPHILS ABSOLUTE MAN 0.08 K/mm3 (0.00-0.68); EOSINOPHILS PERCENT MAN 2 % (0-6); LYMPHOCYTES ABSOLUTE MAN 0.33 K/mm3 (0.84-5.20); LYMPHOCYTES PERCENT MAN 8 % (21-46); MONOCYTES ABSOLUTE MAN 0.12 K/mm3 (0.16-1.47); MONOCYTES PERCENT MAN 3 % (4-13); NEUTROPHILS ABSOLUTE MAN 3.66 K/mm3 (1.96-9.15); SEG NEUTROPHILS PERCENT MAN 87 % (41-73); TOTAL CELLS COUNTED 100
[2023-12-12] MEDS ORDERED: Metoprolol Succinate 25 MG TABCR PO ONE (12:45)
[2023-12-12] MEDS ORDERED: Metolazone 2.5 MG Tab PO SCH (13:00)
[2023-12-12 17:18] LABS: Source, Urine Foley catheter
[2023-12-12 17:21] LABS: Appearance, Urine Clear (Clear); Bilirubin, Urine Neg (Neg); Blood, Urine Neg (Neg); Color, Urine Yellow (P-Yellow); Glucose Qualitative, Urine Neg (Neg); Ketones, Urine Neg (Neg); Leukocyte Esterase, Urine 1+ (Neg); Nitrite, Urine Neg (Neg); Protein, Urine 1+ (Neg); Specific Gravity, Urine 1.015 (1.003-1.022); Urobilinogen, Urine NORM (Normal)
[2023-12-12 17:28] LABS: Red Blood Cells, Urine 0-2 /hpf (0-2); White Blood Cells, Urine 0-2 /hpf (0-5)
[2023-12-12 17:29] LABS: Bacteria Few /hpf; Squamous Epithelial Cells Not Seen /hpf (Few)
--- NOTE | 2023-12-12 18:22 | NUR ---
SHIFT SUMMARY: NEURO: PT ALERT AND ORIENTED X4. [place]. FOLLOWS COMMANDS. CARDIAC: PT WAS IN SINUS TACH ALL DAY WITH OCCASIONAL RUNS OF SVT. THIS IS NOT NEW FOR HER TODAY. DENIES ANY CP. PT REMAIND HYPOTENSIVE ALL DAY. RESP: PT ON 5L NC. ON RA AT HOME. PT ASPIRATIED ON WATER THIS AFTERNOON AND REQUIRED NRB TO RECOVER O2 SATS. PROVIDER CALLED AND WOULD LIKE TO PLACE PT ON BIPAP. RT AWARE. PT NO ABLE TO COUGH DUE TO BEING TOO WEAK. HAS BEEN TACHYPENIC THROUGHOUT THE DAY. PT CHANGED TO NECTAR THICL LIQUIDS AND REMAINS ON A PUREE DIET. GI/: PT HAD A SMALL BM TODAY. PRIETO PLACED PER PROVIDER ORDERS. SKIN. SCATTERED SORES, BRUISES, SCABS AND ULCERS ALL OVER BODY. SEE PICTURES IN CHART. IV'S: PT HAS PG TO ANTONIO. LINE IS PATENT.
[2023-12-12] MEDS ORDERED: Albuterol 2.5 MG/3 ML VIAL INH PRN (21:35)
[2023-12-13] VITALS (41 sets, daily range): BP systolic 73–158; BP diastolic 17–133
--- NOTE | 2023-12-13 02:52 | NUR ---
CALL PLACED TO PHYSICIAN REGARDING PT SUSTAINED ELEVATED HR IN THE 120s. PT HAS BEEN ASYMPTOMATIC WITH THIS HR. PT IS ON BIPAP CURRENTLY AND IS TOLERATING THAT WELL WITH GOOD O2 SATS MAINTAINED. PT DID ALSO HAVE AN ELEVATED TEMP AND WAS MEDICATED FOR THAT. ORDERS FOR LACTIC ACID AND TO CONTINUE MONITORING PT CONDITION AND REPORT ANY WORSENING SYMPTOMS. PT HAS HAD SOFT BPS THROUGHOUT THIS ADMIT.
[2023-12-13 03:08] LABS: Hematocrit 25.7 % (33.0-51.0); Hemoglobin 8.8 g/dL (11.5-16.0); Mean Corpuscular HGB 36.2 pg (26.0-34.0); Mean Corpuscular HGB Conc 34.2 g/dL (31.5-36.5); Mean Corpuscular Volume 106 fL (80-100); Mean Platelet Volume 11.1 fL (9.1-12.4); Platelet Count 201 K/mm3 (150-400); RDW Coefficient Variation 21.6 % (11.7-14.2); RDW Standard Deviation 83.6 fL (35.1-46.3); Red Blood Cell Count 2.43 M/mm3 (3.80-5.20); White Blood Cell Count 6.27 K/mm3 (4.00-11.30)
[2023-12-13 03:27] LABS: Bun/Creatinine Ratio 12.5 (12.0-20.0); Calcium, Blood 7.9 mg/dL (8.5-10.1); Creatinine, Blood 0.56 mg/dL (0.40-1.00); Potassium, Blood 3.6 mmol/L (3.5-5.5)
[2023-12-13 03:44] LABS: BAND PERCENT MAN 6 % (0-8); BASOPHILS PERCENT MAN 0 % (0-2); EOSINOPHILS PERCENT MAN 0 % (0-6); LYMPHOCYTES ABSOLUTE MAN 0.06 K/mm3 (0.84-5.20); LYMPHOCYTES PERCENT MAN 1 % (21-46); MONOCYTES ABSOLUTE MAN 0.12 K/mm3 (0.16-1.47); MONOCYTES PERCENT MAN 2 % (4-13); NEUTROPHILS ABSOLUTE MAN 6.08 K/mm3 (1.96-9.15); SEG NEUTROPHILS PERCENT MAN 91 % (41-73); TOTAL CELLS COUNTED 100
--- NOTE | 2023-12-13 05:18 | NUR ---
SPOKE WITH DR. MOORE REGARDING PT LOW BP 80s/60s MAP IN 70s. ORDER GIVEN TO GIVE AM DOSE OF MIDODRINE EARLY. GAVE PT AM DOSE OF MIDODRINE EARLY. PT OFF BIPAP AT THIS TIME TO TAKE MEDICATION, MAINTAINING GOOD SPO2 ON 8L NC
--- NOTE | 2023-12-13 06:13 | NUR ---
PT HAVING INCREASED WORK OF BREATHING AND DECREASED O2 SATS EARLY IN THE SHIFT, BIPAP WAS PLACED ON PT AND WORK OF BREATHING AND O2 SATS IMPROVED. PT CONTINUES TO TOLERATE IV ABX TO RT ARM POWER GLIDE. POWER GLIDE FLUSHES WELL BUT NO BLOOD RETURN. PT DOES NOT COMPLAIN OF ANY PAIN OR DISCOMFORT WITH FLUSHES OR INFUSION. DRESSING CHANGED. PT REMAINS EDEMATOUS +3 TO B/L LEGS. RT ARM HAS SOME WEEPING AREAS. PT REQUESTED CREAM TO THE BACK OF HER ARM AND BARRIER CREAM WAS APPLIED D/T PAIN AND AN AREA OF REDNESS. PT COCCYX AND BUTTOCKS HAD BARRIER CREAM APPLIED WELL. PT HAS MULTIPLE AREAS OF SCABS, SKIN BREAKDOWN, AND BRUISING. DRESSINGS REMAIN INTACT NO DRAINAGE NOTED. PT HAS HAD SOFT BP AND INCREASINGLY ELEVATED HR THROUGHOUT SHIFT. MIDODRINE GIVEN EARLY PER PHYSICIAN. PT HAS ELEVATED LACTATE THIS AM OF 4.2. PHYSICIAN AWARE OF CHANGES IN PT CONDITION AND WE ARE TO CONTINUE TO MONITOR AND CONTACT PHYSICIAN IF PT CONTINUES TO DECLINE. PT DID HAVE ELEVATED TEMP AND TYLENOL GIVEN AND TEMP RETURNED TO NORMAL. PT DID HAVE GOOD URINARY OUTPUT BY PRIETO. NO LOOSE STOOL NOTED. PT REPOSITIONED MULTIPLE TIMES. CHANGES IN PATIENT CONDITION
[2023-12-13] MEDS ORDERED: Albumin (Human) 25gm/100ml 100 ML IV ONE (07:45)
[2023-12-13] MEDS ORDERED: Mag Sulfate 1 GM/D5% 100ML 100 ML IV STA (08:39)
[2023-12-13] MEDS ORDERED: Calcium Chloride 10% 1,000 MG in NS 50 ML IV ONE (08:40)
[2023-12-13] MEDS ORDERED: Potassium Chl 20MEQ/Water100ML 100 ML IV SCH (08:45)
[2023-12-13] MEDS ORDERED: Metoprolol Succinate 25 MG TABCR PO SCH (09:00)
[2023-12-13] MEDS ORDERED: Enoxaparin 40 MG/0.4 ML SYR SC SCH (09:00)
--- NOTE | 2023-12-13 09:28 | NUR ---
TRANSFER FROM PCU PT ARRIVED TO ICU 1 VIA BED AT 0905. PT IS ON BIPAP /, FIO2 40%. RR 30'S. PT IS AWAKE AND ALERT. PT RESPONDS TO VERBAL STIMULI AND NODS HEAD TO QUESTIONS. PT IS HARD OF HEARING. PG TO ANTONIO IN PLACE WITH ALBUMIN INFUSING. LEFT ARM CAST IN PLACE. PT WITH SCATTERED VARIOUS WOUNDS, BRUISES, SCABS, AND SKIN TEARS THROUGHOUT. PT WITH WEEPING EDEMA TO RIGHT ARM AND BLE'S. SBP 80'S, MAP 70'S AT THIS TIME. PRIETO IN PLACE WITH DARK YELLOW URINE OUTPUT NOTED. PT WITH SMEAR BM UPON ARRIVAL. PT CLEANED AND NEW ATTENDS PLACED. NO FAMILY AT BEDSIDE AT THIS TIME. WILL CONTINUE TO MONITOR.
--- NOTE | 2023-12-13 09:30 | NUR ---
ASSUMPTION OF CARE/ TRANSFER TO ICU NUERO: ALERT AND ORIENTED X4. PT APPEARS VERY TIRED IN BED. CARDIAC: PT REMAINS HYPOTENSIVE. PT TACHY IN THE 110'S-120'S WHICH IS NEW FROM YESTERDAY. THIS RN WAS UNABLE TO GIVE MORNING DIURETICS AND METOPROLOL DUE TO MAP BEING BELOW 65. PROVIDER AWARE. RESP: PT ON BIPAP. PT TACHYPENIC AT A RATE OF 36. PTS 02 SATS 94%. GI/: PRIETO REMAINS IN PLACE. PTS LACTIC WAS 4.2 AT 0302 AND INCREASED TO 8.1 AT 0753. THIS RN EXPRESSED CONCER TO PROVIDER ABOUT LACTIC ACID IS NOT ABLE TO BE ADRESSED DUE FLUID OVERLOAD AND PT CONTINUES TO HAVE WEEPING EDEMA NOT ABLE TO DIURESE PT DUE TO LOW BP THAT MAY CONTINUE TO DROP WITH INCRESING LACTIC. ORDERS PLACE TO BE TRANSFERED TO ICU. REPORT TO MEAGAN Miranda TO ASSUME CARE OF PT AND PT TRANSPORTED TO ICU 1.
[2023-12-13] MEDS ORDERED: Vancomycin HCL 1,500 MG in NS 250 ML IV ONE (10:15)
[2023-12-13] MEDS ORDERED: propofoL 100 ML IV SCH (10:25)
--- NOTE | 2023-12-13 10:29 | NUR ---
RSI Preparing for RSI due to increased work of breathing. Currently on BiPAP 12/6 and 60% FiO2. SpO2 100%. RT Michaud at bedside. Dr Mckeon at bedside 1037 - BP 84/70 (76) 100 mcg neosynephrine given. 1039 - 40 mg propofol given 1040 - 50 mg rocuronium given 1042 - successful intubation with 7.5 cm ETT, 24 cm at teeth. 1043 - 79/67 (73) 50 mcg neosynephrine given. Audible breath sounds in all rios. No sounds over epigastrum. ETCO2 24 per waveform capnography. SpO2 92%
[2023-12-13] MEDS ORDERED: NS 250 ML IV PRN (12:15)
[2023-12-13] MEDS ORDERED: Vasopressin 20 UNITS in NS 100 ML IV SCH (13:40)
[2023-12-13] MEDS ORDERED: Propofol 10mg/ml 20 ml Vial (Procedural) IV ONE (13:52)
[2023-12-13] MEDS ORDERED: Phenylephrine HCl 100 MCG/ML-NS 10MLSYR (1MG/10ML) IV ONE (13:52)
[2023-12-13] MEDS ORDERED: Rocuronium Bromide 10 MG/ML 5ML Injection IV ONE (13:52)
[2023-12-13 14:22] LABS: PCO2 Arterial 42 mmHg (35-45); PO2 Arterial 92 mmHg (80-100); pH Blood Arterial 7.14 (7.35-7.45)
[2023-12-13] MEDS ORDERED: Hydrocortisone Sod Succinate 100 MG Vial IV SCH (16:50)
[2023-12-13] MEDS ORDERED: NS 500 ML IV SCH (17:00)
[2023-12-13] MEDS ORDERED: Lactated Ringer's 1,000 ML IV ONE (17:30)
[2023-12-13 17:41] LABS: PCO2 Arterial 26.1 mmHg (35-45); PO2 Arterial 119 mmHg (80-100); pH Blood Arterial 7.16 (7.35-7.45)
[2023-12-13] MEDS ORDERED: Albumin (Human) 25gm/100ml 100 ML IV SCH (18:00)
--- NOTE | 2023-12-13 18:03 | NUR ---
SHIFT SUMMARY PT WITH DECLINE THROUGHOUT THE SHIFT. PT INTUBATED AND CENTRAL LINE PLACED THIS MORNING. SEE NN. VENT SETTINGS REMAIN AC 16, TV 350, PEEP 5, FIO2 40%. PT PRESSOR REQUIREMENTS HAVE STEADILY INCREASED, AND NIBP READINGS MORE LABILE THIS AFTERNOON. DR PATTERSON NOTIFIED AND CAME TO PLACE ARTERIAL LINE TO RIGHT FEMORAL SITE THIS EVENING. LEVOPHED CURRENTLY INFUSING AT 20 MCG/MIN AND VASOPRESSIN AT 0.04 UNITS/HR. PROPOFOL ON STANDBY AT THIS TIME. PT NOT RESPONSIVE TO NOXIOUS STIMULI. OGT IN PLACE TO LIS WITH NO OUTPUT NOTED. PRIETO REMAINS IN PLACE WITH SMALL AMOUNT OF DARK YELLOW URINE OUTPUT NOTED. WOUNDS AND WEEPING EDEMA UNCHANGED. SBW RESTRAINTS IN PLACE. PT MADE DNR STATUS THIS MORNING AFTER DR PATTERSON HAD DISCUSSION ABOUT PT WISHES AND PROGNOSIS WITH PT SPOUSE. PT SPOUSE AT BEDSIDE AT THIS TIME FOR UPDATE FROM DR PATTERSON. WILL CONTINUE TO MONITOR AND REPORT OFF TO ONCOMING RN.
[2023-12-13] MEDS ORDERED: Cetylpyridinium Chloride 1 EA MISC MT SCH (20:00)
--- NOTE | 2023-12-13 21:27 | NUR ---
ASSUMED CARE ASSUMED CARE AT 1900. PT INTUBATED AND OFF SEDATION. AC/VC 16/350/5/40%. RR 30'S. SPO2 MONITOR NOT ACCURATE AND ABGS DONE PRIOR SHIFT TO CHECK PAO2. CALL TO DR PATTERSON AND ORDER FOR AM ABG. LEVOPHED AND VASOPRESSIN GTT INFUSING. SEE FLOWSHEET FOR TITRATIONS. VSS. OPENS EYES SPONTANEOUSLY BUT DOES NOT TRACK OR LOOK AROUND. VERY MINIMAL PUPIL RESPONSE. CORNEAL REFLEX INTACT. GRIMACES WITH ORAL CARE. NO MOVEMENT IN BUE WITH NOXIOUS STIMULI. DOES MOVE TOES WITH TACTILE STIMULI. BILATERAL TOES BLUE AND COLD. UNABLE TO GET DOPPLER PULSES BUT ABLE TO HEAR RIGHT TIBIAL. DAUGHTER AT BEDSIDE, UPDATED ON PT CONDITION AND POC.
[2023-12-14] VITALS (10 sets, daily range): BP systolic 63–121; BP diastolic 16–96
[2023-12-14] MEDS ORDERED: Hydrogen Peroxide 1.5 % Solution MT SCH
[2023-12-14] MEDS ORDERED: Vancomycin HCL 1,000 MG in NS 250 ML IV SCH
[2023-12-14 02:42] LABS: PCO2 Arterial 26.2 mmHg (35-45); PO2 Arterial 103 mmHg (80-100)
[2023-12-14 02:43] LABS: pH Blood Arterial 7.02 (7.35-7.45)
[2023-12-14 02:59] LABS: Hematocrit 27.3 % (33.0-51.0); Hemoglobin 8.2 g/dL (11.5-16.0); Mean Corpuscular HGB 36.1 pg (26.0-34.0); Mean Corpuscular Volume 120 fL (80-100); NRBC ABSOLUTE 0.03 K/mm3 (0.00-0.02); NRBC Auto 0.3 /100 WBC (0.0-0.2); Platelet Count 134 K/mm3 (150-400); RDW Coefficient Variation 21.8 % (11.7-14.2); RDW Standard Deviation 97.5 fL (35.1-46.3); Red Blood Cell Count 2.27 M/mm3 (3.80-5.20); White Blood Cell Count 10.36 K/mm3 (4.00-11.30)
[2023-12-14] MEDS ORDERED: Dextrose 50% 50 ML Vial ONE (03:44)
[2023-12-14 03:45] LABS: BAND PERCENT MAN 5 % (0-8); BASOPHILS PERCENT MAN 0 % (0-2); EOSINOPHILS PERCENT MAN 0 % (0-6); LYMPHOCYTES ABSOLUTE MAN 0.31 K/mm3 (0.84-5.20); LYMPHOCYTES PERCENT MAN 3 % (21-46); MONOCYTES PERCENT MAN 1 % (4-13); NEUTROPHILS ABSOLUTE MAN 9.94 K/mm3 (1.96-9.15); SEG NEUTROPHILS PERCENT MAN 91 % (41-73); TOTAL CELLS COUNTED 100
[2023-12-14 03:50] LABS: Albumin, Blood 2.1 g/dL (3.4-5.0); Albumin/Globulin Ratio 0.8 (0.8-1.8); Bilirubin, Total 1.3 mg/dL (0.1-1.0); Bun/Creatinine Ratio 7.8 (12.0-20.0); Calcium, Blood 8.2 mg/dL (8.5-10.1); Creatinine, Blood 1.29 mg/dL (0.40-1.00); Globulin, Blood 2.8 g/dL (2.2-4.0); Total Protein, Blood 4.9 g/dL (6.4-8.2)
[2023-12-14] MEDS ORDERED: Dextrose 50% 50 ML Syringe IV ONE (03:55)
[2023-12-14] MEDS ORDERED: Dextrose 50% 50 ML Vial IV ONE (04:00)
[2023-12-14] MEDS ORDERED: Dextrose 10% 1,000 ML IV SCH (04:00)
--- NOTE | 2023-12-14 04:43 | NUR ---
CALL TO DR PATTERSON CALL MADE TO DR PATTERSON REGARDING MORNING LABS OF CO2 6.0, K+ 6.0, PH 7.02, AND GLUCOSE OF 14. ALSO NOTIFIED OF NO URINE OUTPUT, NEURO STATUS, AND PRESSOR REQUIREMENTS. AMP OF D50 GIVEN AND D10 STARTED PER ORDER. NO OTHER ORDERS RECEIVED.
--- NOTE | 2023-12-14 05:50 | NUR ---
SHIFT SUMMARY SEE PRIOR NOTES. PT REMAINS INTUBATED AND OFF SEDATION. AC/VC 16/350/5/40% RR 30-40'S. LEVOPHED, VASOPRESSIN AND D10 AT 50ML/HR GTT INFUSING. SEE FLOWSHEET FOR TITRATIONS. Q1 CBG 90-100'S. NO PURPOSEFUL MOVEMENT NOTED. WILL SLIGHTLY PULL BACK WHEN RIGHT ARM IS LIFTED. DOES NOT TRACK. VSS. PT DID HAVE TWO EPISODES OF HR IN THE 130'S BUT DID NOT SUSTAIN LONGER THEN 1-2 MINS. ART LINE TO RIGHT GROIN. CL TO RIJ. PRIETO PATENT AND DRAINING TO GRAVITY. OGT TO LIS. WILL REPORT OFF TO ONCOMING RN.
[2023-12-14] MEDS ORDERED: Artificial Tear Opth Oint 3.5 GM BOTHEYES PRN (06:45)
[2023-12-14 09:02] LABS: Albumin, Blood 1.9 g/dL (3.4-5.0); Albumin/Globulin Ratio 0.7 (0.8-1.8); Bilirubin, Total 1.2 mg/dL (0.1-1.0); Bun/Creatinine Ratio 7.5 (12.0-20.0); Calcium, Blood 7.6 mg/dL (8.5-10.1); Creatinine, Blood 1.47 mg/dL (0.40-1.00); Globulin, Blood 2.8 g/dL (2.2-4.0); Potassium, Blood 5.8 mmol/L (3.5-5.5); Total Protein, Blood 4.7 g/dL (6.4-8.2)
[2023-12-14] MEDS ORDERED: Morphine Sulfate 10 MG/ML 1MLSYR IV PRN (09:45)
[2023-12-14] MEDS ORDERED: HYDROmorphone HCl/Pf 1MG SYR IV PRN (09:45)
[2023-12-14] MEDS ORDERED: Atropine Sulfate 1% Opth Soln 2ML BTL SL PRN (09:45)
[2023-12-14] MEDS ORDERED: LORazepam 2 MG/ML 1ML Injection IV PRN (09:45)
[2023-12-14] MEDS ORDERED: Morphine Sulfate 20 MG/1ML 1 ML Oral Syringe SL PRN (09:45)
[2023-12-14] MEDS ORDERED: Haloperidol Lactate Inj. 5 MG/ML Injection IV PRN (09:45)
--- NOTE | 2023-12-14 10:58 | NUR ---
COMFORT CARE/ TOD EXTENSIVE DISCUSSIONS ABOUT PT CONDITION AND PLAN OF CARE THIS MORNING WITH PT SPOUSE AND DAUGHTER WITH DR PATTERSON AND DR CUNNINGHAM. DECISION WAS MADE TO PROCEED WITH COMFORT CARE AFTER FAMILY DISCUSSION. PT EXTUBATED BY RT REYNOSO AT 1049 TO ROOM AIR. ALL VASOPRESSORS AND GTTS STOPPED AT THAT TIME. PT QUICKLY WITH AGONAL BREATHING PATTERN AND RAPID DECLINE IN ARTERIAL BP. TOD 1054. PT FAMILY REQUESTED HEATHER AL OF THE [facility]. ALL BELONGS SENT HOME WITH PT SPOUSE. DR PATTERSON NOTIFIED.
[2023-12-15] MEDS ORDERED: Pantoprazole Sodium 40 MG Injection IV SCH (06:00)
== END 2023-12-14 14:21 | DRG 871 ==
LOC: ER 11:26 → PCU 14:57 → ICUE 14:57 → PCU 16:43 → ICUE 12-13 08:55
PROVIDERS: Emergency Medicine; Internal Medicine; Internal Medicine Critical Care Medicine; Physician Assistant; ADMIT Family Medicine
PROC: 3E03329 Introduction of Other Anti-infective into Peripheral Vein, Percutaneous Approach (ICD-10-PCS; principal; 2023-12-06)
PROC: 5A09357 Assistance with Respiratory Ventilation, Less than 24 Consecutive Hours, Continuous Positive Airway Pressure (ICD-10-PCS; 2023-12-12)
PROC: 0T9B70Z Drainage of Bladder with Drainage Device, Via Natural or Artificial Opening (ICD-10-PCS; 2023-12-12)
PROC: 5A1945Z Respiratory Ventilation, 24-96 Consecutive Hours (ICD-10-PCS; 2023-12-13)
PROC: 0BH17EZ Insertion of Endotracheal Airway into Trachea, Via Natural or Artificial Opening (ICD-10-PCS; 2023-12-13)
PROC: 3E033XZ Introduction of Vasopressor into Peripheral Vein, Percutaneous Approach (ICD-10-PCS; 2023-12-13)
PROC: 4A133R1 Monitoring of Arterial Saturation, Peripheral, Percutaneous Approach (ICD-10-PCS; 2023-12-13)
PROC: 02HV33Z Insertion of Infusion Device into Superior Vena Cava, Percutaneous Approach (ICD-10-PCS; 2023-12-13)
PROC: 0DH67UZ Insertion of Feeding Device into Stomach, Via Natural or Artificial Opening (ICD-10-PCS; 2023-12-13)
PROC: 06HM33Z Insertion of Infusion Device into Right Femoral Vein, Percutaneous Approach (ICD-10-PCS; 2023-12-13)
PROC: B54BZZA Ultrasonography of Right Lower Extremity Veins, Guidance (ICD-10-PCS; 2023-12-13)
PROC: 30233J1 Transfusion of Nonautologous Serum Albumin into Peripheral Vein, Percutaneous Approach (ICD-10-PCS; 2023-12-13)
DX: A41.9 Sepsis, unspecified organism (principal); E43 Unspecified severe protein-calorie malnutrition; L89.523 Pressure ulcer of left ankle, stage 3; L89.513 Pressure ulcer of right ankle, stage 3; J69.0 Pneumonitis due to inhalation of food and vomit; R65.21 Severe sepsis with septic shock; J96.01 Acute respiratory failure with hypoxia; I50.43 Acute on chronic combined systolic (congestive) and diastolic (congestive) heart failure; S42.402A Unspecified fracture of lower end of left humerus, initial encounter for closed fracture; N17.9 Acute kidney failure, unspecified; N12 Tubulo-interstitial nephritis, not specified as acute or chronic; R64 Cachexia; E87.1 Hypo-osmolality and hyponatremia; I47.10 Supraventricular tachycardia, unspecified; E87.21 Acute metabolic acidosis; Z68.1 Body mass index [BMI] 19.9 or less, adult; I47.20 Ventricular tachycardia, unspecified; F10.27 Alcohol dependence with alcohol-induced persisting dementia; I67.82 Cerebral ischemia; Z51.5 Encounter for palliative care; Z66 Do not resuscitate; R57.8 Other shock; R54 Age-related physical debility; I95.9 Hypotension, unspecified; R13.10 Dysphagia, unspecified; D64.9 Anemia, unspecified; S81.812A Laceration without foreign body, left lower leg, initial encounter; S81.811A Laceration without foreign body, right lower leg, initial encounter; I11.0 Hypertensive heart disease with heart failure; E03.9 Hypothyroidism, unspecified; E87.5 Hyperkalemia; F17.210 Nicotine dependence, cigarettes, uncomplicated; E86.0 Dehydration; Z96.612 Presence of left artificial shoulder joint; Z96.611 Presence of right artificial shoulder joint; Z96.653 Presence of artificial knee joint, bilateral; E78.5 Hyperlipidemia, unspecified; Z85.3 Personal history of malignant neoplasm of breast; Z79.899 Other long term (current) drug therapy; Z79.890 Hormone replacement therapy; H91.90 Unspecified hearing loss, unspecified ear; K43.9 Ventral hernia without obstruction or gangrene; T17.928A Food in respiratory tract, part unspecified causing other injury, initial encounter; Z98.890 Other specified postprocedural states; Z99.81 Dependence on supplemental oxygen; R42 Dizziness and giddiness; R62.7 Adult failure to thrive; R29.6 Repeated falls
CPT/HCPCS: 31500; 36415; 36556; 36600; 36620; 70551; 71045; 74177; 74230; 80048; 80053; 81001; 82272; 82330; 82803; 82947; 83605; 83690; 83735; 83880; 84132; 84439; 84443; 84481; 85014; 85018; 85025; 87040; 87070; 87077; 87086; 87186; 87205; 87507; 92526; 92610; 92611; 93005; 93010; 94002; 94003; 94640; 94660; 94664; 94760; 94762; 96361; 96374-59; 96375; 97110; 97116; 97162; 97165; 97530; 97535; 99285-25; A9270; C1751; J0456; J0612; J0696; J1170; J1650; J1720; J1940; J2270; J2371; J2405; J2704; J3010; J3370; J3475; J3480; J7030; J7040; J7050; J7060; J7120; J7799; P9047; Q9967